=== PATIENT | female | born 1985 | race Caucasian/White ===

== ENCOUNTER → 2024-06-26 | Outpatient (CLI) | payer OTHER, SELFPAY ==
--- NOTE | 2024-06-26 | EMB_PTH ---
PATIENT: TETO RDZ LOC: [facility] U#:[id number] AGE/SX: 39/F ROOM: RE06/26/[address]: Dr. Yumiko Anhtony DO : 1985 BED: DIS: 06/26/2024 SPEC #: [id number] RECD: 06/26/24 16:22 STATUS: JONO BASSAM #: [id number] FREDERICK: 06/26/24 00:[address]: Yumiko Anthony DEPT: SURGICAL PATHOLOGY RECD BY: Stuart Rojas ENTERED: 06/27/24 07:24 SP TYPE: ENDOM BX/C LAURA DR: FILI Way Tissues: A - Endometrium, NOS Procedures: Surgery Specimen Level IV HEADER OPERATION: Endometrial biopsy PRE-OP DIAGNOSIS: Menorrhagia, dysmenorrhea TISSUE SUBMITTED: A- Endometrial tissue MICROSCOPIC DIAGNOSIS A. Endometrium, biopsy: * Fragments of proliferative endometrium and benign endocervical mucosa. MICROSCOPIC DESCRIPTION Slides are reviewed. GROSS DESCRIPTION A. Received in formalin in a container labeled with the patient's name, date of , and with no further designation are multiple bryson-pink fragments of soft tissue admixed with a scant amount of blood and mucus measuring 2.5 x 1.1 x 0.3 cm in aggregate. Submitted in toto in A1. [facility] 06/28/2024 CPT:87613
== END | disposition home or self-care (01) ==
LOC: LABSPEC 15:00
PROVIDERS: PCP Physician Assistant; Referring Provider Obstetrics & Gynecology; Visit Provider Obstetrics & Gynecology
DX: N92.0 Excessive and frequent menstruation with regular cycle (principal); N94.6 Dysmenorrhea, unspecified
CPT/HCPCS: 88305